=== PATIENT | female | born 1935 | race Caucasian/White ===

== ENCOUNTER → 2016-11-27 | Outpatient (CLI) | payer MEDICARE ==
[~2016-11-27] MED LIST: BENA25CA2 PO; BLACK COHASH; BLACK COHOSH OR; CALCTAB22; CALCTAB22 OR; GABA300T OR; HYDR25TA6; HYDR25TA6 OR; LISI20TA5; LISI20TA5 OR; METH10TA2; METH10TA2 OR; NEUR300C; OMEGA 3; OMEGA 3 OR; PLAV75TA2; PLAV75TA2 OR; POTA10CA2; POTA10CA2 OR; RANI150C; RANI150C OR; SOY; SOY OR; SYNT100T; SYNT100T OR; SYNT75TA PO; TRAM50TA2; TRAM50TA2 OR; ULTR50TA PO; VITA100027; VITAMIN D50000 UNT OR; ZOCO5TAB; ZOCO5TAB OR; [UNRECOGNIZED DRUG - OTHER]; hydrocodone PO
== END ==
LOC: M ONCR 13:04
PROVIDERS: ATTEND Radiology Radiation Oncology
DX: C34.11 Malignant neoplasm of upper lobe, right bronchus or lung (principal)

== ENCOUNTER → 2016-12-17 | Outpatient (REF) | payer MEDICARE ==
[2016-12-17 13:24] LABS: THYROXINE (T4) 14.5 UG/DL (4.5-12.0)
== END ==
LOC: M LAB REF 12:29
PROVIDERS: ATTEND Internal Medicine Medical Oncology
DX: C34.90 Malignant neoplasm of unspecified part of unspecified bronchus or lung (principal)

== ENCOUNTER → 2016-12-21 | Outpatient (CLI) | payer MEDICARE ==
--- NOTE | 2016-12-22 01:10 | ECWPNPC ---
PATIENT NAME: NOMI PAREDES : 1935 GENDER: FEMALE VISIT DATE: 12/21/2016 DISCHARGE DATE: 12/21/16 1135 VISIT LOCKED DATE TIME: PHYSICIAN: SAVANNAH RICHARDS RESOURCE: SAVANNAH RICHARDS REASON FOR APPOINTMENT 1. FOLLOW UP HISTORY OF PRESENT ILLNESS HISTORY OF PRESENT ILLNESS: HERE FOR F/U OF PERSISTENT THORACIC BACK PAIN. CONTINUES WITH INTERMITTENT LBP WHEN SHE OVER WORKS. RATING PAIN VAS 1-10 THORACIC PAIN TODAY.USING METHADONE 10MG BID AND TRAMADOL 50MG PRN HELPFUL AT REDUCING PAIN. DENIES SIDE EFFECTS W MEDICATION. PAIN THE PATIENT DESCRIBES THE PAIN... THE PATIENT DESCRIBES THE PAIN... THE PATIENT DESCRIBES THE PAIN... FALL RISK SCREENING: SCREENING :NO FALLS IN THE PAST YEAR CURRENT MEDICATIONS TAKING CALCIUM CARBONATE 600 MG TABLET 1 TABLET ORALLY DAILY TAKING PLAVIX 75 MG TABLET 1 TABLET ORALLY ONCE A DAY TAKING DIPHENHYDRAMINE HCL 25 MG CAPSULE 1 CAPSULE NEEDED ORALLY EVERY 6 HRS TAKING GABAPENTIN 300 MG CAPSULE 1 CAPSULE ORALLY QHS TAKING HYDROCHLOROTHIAZIDE 12.5 MG CAPSULE 1 CAPSULE ORALLY ONCE A DAY TAKING SYNTHROID 112 MCG TABLET 1 TABLET ORALLY ONCE A DAY TAKING LISINOPRIL 20 MG TABLET 1 TABLET ORALLY ONCE A DAY TAKING RANITIDINE HCL 150 MG CAPSULE 1 CAPSULE ORALLY TWICE A DAY TAKING SIMVASTATIN 5 MG TABLET 1 TABLET IN THE EVENING ORALLY ONCE A DAY TAKING BLACK COHOSH 40 MG CAPSULE ORALLY DAILY TAKING OMEGA 3 1000 MG CAPSULE 1 CAPSULE ORALLY ONCE A DAY TAKING TRAMADOL HCL 50 MG TABLET 1 TABLET NEEDED ORALLY EVERY 6 HRS TAKING METHADONE HCL 10 MG TABLET 1 TAB(S) ORALLY BID MDD2 3MOS SUPPLY CAT D CHRONIC PAIN TAKING K DUR 10 MEQ DAILY NOT-TAKING SOY BALANCE 1 1 TAB(S) P.O. DAILY DISCONTINUED POTASSIUM CHLORIDE 10 MEQ/100ML SOLUTION 1 PACKET INTRAVENOUS ONCE A DAY MEDICATION LIST REVIEWED AND RECONCILED WITH THE PATIENT PAST MEDICAL HISTORY HYPERTENSION HYPERTHYROIDISM ESOPHAGEAL REFLUX HIATAL HERNIA RIGHT LUNG CANCER-RAD TX MELANOMA 2011 ALLERGIES N.K.D.A. SOCIAL HISTORY GENERAL: TOBACCO USE ARE YOU A:NONSMOKER LEARNING BARRIERS / SPECIAL NEEDS ORIENTED TO PLAN OF CARE: PATIENT, PAIN MANAGEMENT PATIENT, ORIENTED TO PLAN OF CARE: PATIENT, PAIN MANAGEMENT PATIENT. NEW PATIENT PAIN DIARY TODAY'S VISITNOTES FROM 0-10, WHAT LEVEL IS YOUR PAIN TODAY?0 PAIN CLINIC PFS, CLERGY, PUBLIC HEALTH REFERRALS PFS REFERRAL NEEDED?NO CLERGY REFERRAL NEEDED?NO PUBLIC HEALTH REFERRAL NEEDED?NO WAS THE PROVIDER NOTIFIED OF ANY PERTINENT INFO?NO PFS REFERRAL NEEDED?NO CLERGY REFERRAL NEEDED?NO PUBLIC HEALTH REFERRAL NEEDED?NO WAS THE PROVIDER NOTIFIED OF ANY PERTINENT INFO?NO REVIEW OF SYSTEMS CONSTITUTIONAL: ANY CHANGE IN YOUR MEDICAL CONDITION? YES LUNG CANCER -5 RAD TX-COMPLETED LAST WEEK . CHILLS NO . FEVER NO . INFECTION: DO YOU HAVE NEW INFECTIONS? NO . DO YOU HAVE HISTORY OF MRSA? NO . MUSCULOSKELETAL: ANY NEW PATTERNS OF PAIN OR NUMBNESS? NO . GASTROENTEROLOGY: ANY NEW CHANGE IN BOWEL CONTROL? NO . GENITOURINARY: ANY NEW CHANGE IN BLADDER CONTROL? NO . IS THERE A CHANCE YOU COULD BE ? NO . HEMATOLOGY/LYMPH: DO YOU TAKE ANY BLOOD THINNERS? (FOR EXAMPLE- COUMADIN, PLAVIX, AGGRENOX, PLATEL, PRADAXA, OR XARELTO) YES PLAVIX . WHEN WAS YOUR LAST DOSE? DATE: TIME: . NEUROLOGY: HAVE YOU FALLEN IN THE PAST 6 MONTHS? NO . ANY NEW EXTREMITY NUMBNESS OR WEAKNESS? NO . CARDIOLOGY: DO YOU HAVE A PACEMAKER OR DEFIBRILLATOR? NO . RESPIRATORY: HAVE YOU BEEN SICK IN THE PAST WEEK? NO . FEVER NO . FLU LIKE SYMPTOMS? NO . COUGH NO . INTEGUMENTARY: DO YOU HAVE ANY RASHES OR OPEN SORES? NO . ALLERGIC/IMMUNO: ARE YOU ALLERGIC TO SHELLFISH OR IV DYE? NO . ANY NEW ALLERGIES? NO . PSYCHIATRIC: DO YOU HAVE THOUGHTS OF HURTING YOURSELF OR SOMEONE ELSE? NO . ARE YOU ABUSED, NEGLECTED, OR IN AN UNSAFE ENVIRONMENT? NO . ENDOCRINOLOGY: ARE YOU DIABETIC? NO . OTHER: DO YOU NEED ANY PRESCRIPTIONS? YES METHADONE . IF YES, PLEASE LIST: ____ . ANY NEW PROBLEMS WITH YOUR MEDICATIONS? NO . WHEN DID YOU LAST EAT? ____ . WHEN DID YOU LAST DRINK? ____ . WHAT DID YOU LAST DRINK? ____ . NAME OF PERSON DRIVING YOU HOME? ____ . DO YOU HAVE ANY OTHER QUESTIONS OR CONCERNS NO . REVIEWED BY: PROVIDER: SAVANNAH LEDESMA . VITAL SIGNS WT 109.4 LBS, HT 97.9 IN, BMI 8.02 INDEX, BP 141/64 MM HG, RR 16 /MIN, TEMP 98.5 F, OXYGEN SAT % 93%, NA INITIALS SC 10:47, REVIEWED BY: SARAH. EXAMINATION GENERAL EXAMINATION: LUNGS:LUNG SOUNDS ARE CLEAR. HEART:HEART RATE REGULAR. MUSCULOSKELETAL:*, TRIGGER POINTS:, ELICITED WITH PALPATION OVER MID THORACIC MUSCLES L>R, NORMAL RANGE OF MOTION ALL JOINTS . 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 WAS OFFERED SMOKING CESSATION FOR GUIDANCE IN QUITTING THROUGH THE [facility] QUITS PROGRAM AND THE [facility] CESSATION PROGRAM. , #128 - SCREENING BMI AND F/U PLAN IN : BMI ABOVE NORMAL TODAY. DISCUSSED WITH PATIENT NUTRITIONAL FOOD CHOICES TO ASSIST WITH WEIGHT LOSS. RECCOMMENDED REDUCING SALT, SUGAR, SODA INTAKE. RECOMMEND INCREASE ACTIVITY TO INCLUDE WALKING ON A REGULAR BASIS. PROFESSIONAL NUTRITIONAL NUTRITIONAL GUIDANCE WAS OFFERED AND WAS DECLINED. , ISTOP REGISTRY REVIEWED AND DEMNOSTRATES COMPLLIANCE. BRINGS IN MEDICATIONS WHICH IS APPROPRIATE FOR WHAT WAS DISPENSED. RECENT URINE TOXICOLOGY REVIEWED. NO UNAUTHORIZED MEDICATIONS. NO ILLICIT SUBSTANCES AND PRESCRIBED MEDICATIONS WERE PRESENT. , RISKS AND BENEFITS OF NARCOTIC/OPIOD MEDICATIONS WERE REVIEWED WITH PATIENT - THIS INCLUDES BUT IS NOT LIMITED TO RISK OF DEPENDANCE/DEVELOPMENT OF ADDICTION, MOOD DISTURBANCE AND DEPRESSION, OSTEOPOROSIS, HORMONAL AND LABIDAL CHANGES, RESPIRATORY DEPRESSION AND . PATIENT IS ADVISED NOT TO DRIVE WHILE ON THESE MEDICATIONS.URINE TOX TODAY. PROCEDURE CODES FA211 ESTABILISHED PATIENT [facility] CHARGE G7432 BMI CALC BUT PT NOT ELIG F/U PLAN G8783 BP SCR PRFRM RCMDD DEFIND SCR INTVL G8730 PAIN ASSESS POS TOOL F/U PLAN DOC 3016F PT SCRND UNHLTHY OH USE 1123F ACP DISCUSS/DSCN MKR DOCD 9918F FALL PLAN OF CARE DOCD G8427 DOC MEDS VERIFIED W/PT OR RE 2948F FALL RISK ASSESSMENT DOCD 4254F PT TOBACCO SCREEN RCVD TLK FOLLOW UP 3 MONTHS ELECTRONICALLY SIGNED BY CALLIE THACKER ON 12/21/2016 AT 01:10 PM EST DISCLAIMER : THIS IS A VISIT SUMMARY EXTRACTED FROM THE [employer] CHART. IT IS NOT A COPY OF THE [employer] PROGRESS NOTE. KASSANDRA
== END ==
LOC: M PAIN 10:40
PROVIDERS: ATTEND Nurse Practitioner Family
DX: Z09 Encounter for follow-up examination after completed treatment for conditions other than malignant neoplasm (principal); G89.29 Other chronic pain; M54.6 Pain in thoracic spine; M79.1 Myalgia; I10 Essential (primary) hypertension; E03.9 Hypothyroidism, unspecified; K21.9 Gastro-esophageal reflux disease without esophagitis; K44.9 Diaphragmatic hernia without obstruction or gangrene; Z79.01 Long term (current) use of anticoagulants; Z79.891 Long term (current) use of opiate analgesic; Z79.899 Other long term (current) drug therapy; Z85.118 Personal history of other malignant neoplasm of bronchus and lung; Z92.3 Personal history of irradiation

== ENCOUNTER → 2017-03-18 | Outpatient (REF) | payer MEDICARE ==
[2017-03-18 14:10] LABS: THYROXINE (T4) 14.3 UG/DL (4.5-12.0)
== END ==
LOC: M LAB REF 12:27
PROVIDERS: ATTEND Internal Medicine Medical Oncology
DX: C43.9 Malignant melanoma of skin, unspecified (principal)

== ENCOUNTER → 2017-03-20 | Outpatient (CLI) | payer MEDICARE ==
--- NOTE | 2017-03-30 00:30 | ECWPNPC ---
PATIENT NAME: NOMI PAREDES : 1935 GENDER: FEMALE VISIT DATE: 03/20/2017 DISCHARGE DATE: 03/20/17 1207 VISIT LOCKED DATE TIME: PHYSICIAN: SAVANNAH RICHARDS RESOURCE: SAVANNAH RICHARDS REASON FOR APPOINTMENT 1. BACK HISTORY OF PRESENT ILLNESS HISTORY OF PRESENT ILLNESS: HERE FOR F/U OF PERSISTENT THORACIC BACK PAIN. CONTINUES WITH INTERMITTENT LBP WHEN SHE OVER WORKS. RATING PAIN VAS 1-10 THORACIC PAIN TODAY.USING METHADONE 10MG BID AND TRAMADOL 50MG PRN HELPFUL AT REDUCING PAIN. DENIES SIDE EFFECTS W MEDICATION. PAIN THE PATIENT DESCRIBES THE PAIN... THE PATIENT DESCRIBES THE PAIN... THE PATIENT DESCRIBES THE PAIN... THE PATIENT DESCRIBES THE PAIN... PAIN THE PATIENT DESCRIBES THE PAIN... THE PATIENT DESCRIBES THE PAIN... THE PATIENT DESCRIBES THE PAIN... THE PATIENT DESCRIBES THE PAIN... FALL RISK SCREENING: SCREENING :NO FALLS IN THE PAST YEAR CURRENT MEDICATIONS TAKING CALCIUM CARBONATE 600 MG TABLET 1 TABLET ORALLY DAILY TAKING PLAVIX 75 MG TABLET 1 TABLET ORALLY ONCE A DAY TAKING DIPHENHYDRAMINE HCL 25 MG CAPSULE 1 CAPSULE NEEDED ORALLY EVERY 6 HRS TAKING GABAPENTIN 300 MG CAPSULE 1 CAPSULE ORALLY QHS TAKING HYDROCHLOROTHIAZIDE 12.5 MG CAPSULE 1 CAPSULE ORALLY ONCE A DAY TAKING SYNTHROID 125 MCG TABLET 1 TABLET ORALLY ONCE A DAY TAKING LISINOPRIL 20 MG TABLET 1 TABLET ORALLY ONCE A DAY TAKING RANITIDINE HCL 150 MG CAPSULE 1 CAPSULE ORALLY TWICE A DAY TAKING SIMVASTATIN 5 MG TABLET 1 TABLET IN THE EVENING ORALLY ONCE A DAY TAKING BLACK COHOSH 40 MG CAPSULE ORALLY DAILY TAKING OMEGA 3 1000 MG CAPSULE 1 CAPSULE ORALLY ONCE A DAY TAKING K DUR 10 MEQ DAILY TAKING METHADONE HCL 10 MG TABLET 1 TAB(S) ORALLY BID MDD2 3MOS SUPPLY CAT D CHRONIC PAIN NOT-TAKING TRAMADOL HCL 50 MG TABLET 1 TABLET NEEDED ORALLY EVERY 6 HRS NOT-TAKING SOY BALANCE 1 1 TAB(S) P.O. DAILY MEDICATION LIST REVIEWED AND RECONCILED WITH THE PATIENT PAST MEDICAL HISTORY HYPERTENSION HYPERTHYROIDISM ESOPHAGEAL REFLUX HIATAL HERNIA RIGHT LUNG CANCER-RAD TX MELANOMA 2010 ALLERGIES N.K.D.A. SURGICAL HISTORY RADIATION FOR LUNG CA 5 TREATMENTS TOTAL 11/2016 SOCIAL HISTORY GENERAL: TOBACCO USE ARE YOU A:CURRENT SMOKER PATIENT COUNSELED ON THE DANGERS OF TOBACCO USE AND URGED TO QUIT:03/20/2017 ARE YOU INTERESTED IN QUITTING?READY TO QUIT COUNSELED THE PATIENT ON TOBACCO USE, CESSATION [id number]/03/2017 CAFFEINE CAFFEINE USE?YES HOW OFTEN AND HOW MUCH? 4 CUPS PER DAY LEARNING BARRIERS / SPECIAL NEEDS VISION IMPAIRED?YES :CORRECTIVE LENSES READINESS TO LEARN?YES LEARNING PREFERENCES?NO SPECIAL DEVICES?YES :WALKER NEW PATIENT PAIN DIARY TODAY'S VISITNOTES FROM 0-10, WHAT LEVEL IS YOUR PAIN TODAY?0 PAIN CLINIC PFS, CLERGY, PUBLIC HEALTH REFERRALS PFS REFERRAL NEEDED?NO CLERGY REFERRAL NEEDED?NO PUBLIC HEALTH REFERRAL NEEDED?NO WAS THE PROVIDER NOTIFIED OF ANY PERTINENT INFO?YES REVIEWED BY: DS. ADVANCED DIRECTIVES HEALTH CARE PROXY?YES NAME OF HCP DAUGHTER - DYAN PAREDES CONTACT # FOR HCP [phone] REVIEW OF SYSTEMS CONSTITUTIONAL: ANY CHANGE IN YOUR MEDICAL CONDITION? NO . CHILLS NO . FEVER NO . INFECTION: DO YOU HAVE NEW INFECTIONS? NO . DO YOU HAVE HISTORY OF MRSA? NO . MUSCULOSKELETAL: ANY NEW PATTERNS OF PAIN OR NUMBNESS? NO . GASTROENTEROLOGY: ANY NEW CHANGE IN BOWEL CONTROL? NO . GENITOURINARY: ANY NEW CHANGE IN BLADDER CONTROL? NO . IS THERE A CHANCE YOU COULD BE ? NO . HEMATOLOGY/LYMPH: DO YOU TAKE ANY BLOOD THINNERS? (FOR EXAMPLE- COUMADIN, PLAVIX, AGGRENOX, PLATEL, PRADAXA, OR XARELTO) YES, PLAVIX . NEUROLOGY: HAVE YOU FALLEN IN THE PAST 6 MONTHS? NO . ANY NEW EXTREMITY NUMBNESS OR WEAKNESS? NO . CARDIOLOGY: DO YOU HAVE A PACEMAKER OR DEFIBRILLATOR? NO . RESPIRATORY: HAVE YOU BEEN SICK IN THE PAST WEEK? NO . FEVER NO . FLU LIKE SYMPTOMS? NO . COUGH NO . INTEGUMENTARY: DO YOU HAVE ANY RASHES OR OPEN SORES? NO . ALLERGIC/IMMUNO: ARE YOU ALLERGIC TO SHELLFISH OR IV DYE? NO . ANY NEW ALLERGIES? NO . PSYCHIATRIC: DO YOU HAVE THOUGHTS OF HURTING YOURSELF OR SOMEONE ELSE? NO . ARE YOU ABUSED, NEGLECTED, OR IN AN UNSAFE ENVIRONMENT? NO . ENDOCRINOLOGY: ARE YOU DIABETIC? NO . OTHER: DO YOU NEED ANY PRESCRIPTIONS? NO . IF YES, PLEASE LIST: ____ . ANY NEW PROBLEMS WITH YOUR MEDICATIONS? NO . WHEN DID YOU LAST EAT? ____ . WHEN DID YOU LAST DRINK? ____ . WHAT DID YOU LAST DRINK? ____ . NAME OF PERSON DRIVING YOU HOME? ____ . DO YOU HAVE ANY OTHER QUESTIONS OR CONCERNS NO, PT REFUSING ANY SMOKING CESSATION COUSELING AT THIS TIME, PT STATES THAT SHE NOW HAS "[employer]" FOR MEDICAL NECCESITY AT HOME. . REVIEWED BY: PROVIDER: SAVANNAH LEDESMA . VITAL SIGNS WT 111.4 LBS, HT 97.9 IN, BMI 8.17 INDEX, BP 135/54 MM HG, HR 89 /MIN, RR 16 /MIN, TEMP 99.1 F, OXYGEN SAT % 94%, SAFE IN ENV? (Y/N) Y, NA INITIALS AW 1123, REVIEWED BY: DS. EXAMINATION GENERAL EXAMINATION: LUNGS:LUNG SOUNDS ARE CLEAR. HEART:HEART RATE REGULAR. MUSCULOSKELETAL:*, TRIGGER POINTS:, ELICITED WITH PALPATION OVER MID THORACIC MUSCLES L>R, NORMAL RANGE OF MOTION ALL JOINTS . 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 PROCEDURE CODES FA211 ESTABILISHED PATIENT [facility] CHARGE G8730 PAIN ASSESS POS TOOL F/U PLAN DOC G8427 DOC MEDS VERIFIED W/PT OR RE DISPOSITION & COMMUNICATION FOLLOW UP 3 MONTHS ELECTRONICALLY SIGNED BY CALLIE THACKER ON 03/29/2017 AT 05:51 PM EDT DISCLAIMER : THIS IS A VISIT SUMMARY EXTRACTED FROM THE [employer] CHART. IT IS NOT A COPY OF THE [employer] PROGRESS NOTE. KASSANDRA
== END ==
LOC: M PAIN 11:00
PROVIDERS: ATTEND Nurse Practitioner Family
DX: G89.29 Other chronic pain (principal); M54.6 Pain in thoracic spine; M79.1 Myalgia; I10 Essential (primary) hypertension; E03.9 Hypothyroidism, unspecified; K21.9 Gastro-esophageal reflux disease without esophagitis; F17.200 Nicotine dependence, unspecified, uncomplicated; Z79.01 Long term (current) use of anticoagulants; F11.20 Opioid dependence, uncomplicated; Z79.899 Other long term (current) drug therapy

== ENCOUNTER 2017-05-27 10:11 | Emergency (ER) | payer MEDICARE ==
[~2017-05-27] VITALS: Ht 154.9 cm; Wt 50.0 kg
[2017-05-27 10:57] LABS: BASO % 0.2 % (0.0-1.0); EOS # 0.1 K/mm3 (0.0-0.50); EOS % 0.8 % (0.0-3.0); LARGE UNSTAINED CELL # 0.1 K/mm3 (0.0-0.4); LARGE UNSTAINED CELL % 1.3 % (0.0-4.0); LYMPH # 1.4 K/mm3 (1.5-4.5); LYMPH % 15.6 % (24.0-44.0); MEAN CORPUSCULAR HEMOGLOBIN 31.2 pg (27.0-33.0); MEAN CORPUSCULAR HGB CONC 33.3 g/dl (32.0-36.5); MEAN CORPUSCULAR VOLUME 93.6 fl (80.0-96.0); MONO # 0.4 K/mm3 (0.0-0.8); MONO % 5.1 % (0.0-5.0); NEUTROPHILS # 6.1 K/mm3 (1.8-7.7); NEUTROPHILS % 76.9 % (36.0-66.0); PLATELET COUNT, AUTOMATED 256 k/mm3 (150-450); RED CELL DISTRIBUTION WIDTH 13.1 % (11.5-14.5)
[2017-05-27 11:13] LABS: ANION GAP 7 MEQ/L (8-16); BLOOD UREA NITROGEN 15 MG/DL (7-18); CALCIUM LEVEL 9.3 MG/DL (8.8-10.2); CARBON DIOXIDE LEVEL 28 MEQ/L (21-32); CHLORIDE LEVEL 104 MEQ/L (98-107); CREATININE FOR GFR 0.88 MG/DL (0.55-1.02); GLOMERULAR FILTRATION RATE > 60.0 (>32); GLUCOSE, FASTING 138 MG/DL (83-110); POTASSIUM SERUM 3.9 MEQ/L (3.5-5.1); SODIUM LEVEL 139 MEQ/L (136-145)
--- NOTE | 2017-05-27 11:54 | REP ---
RIGHT ANKLE: Four views. There is no evidence of an acute fracture, dislocation or intrinsic bone disease. The ankle mortise is anatomic. IMPRESSION: No fracture or dislocation. Signed by Fredis Mendez MD 05/27/2017 05:08 P
[2017-05-27 11:58] VITALS: BP 116/51
== END 2017-05-27 11:57 | disposition home or self-care (01) ==
LOC: M ED 10:11
DX: S90.01XA Contusion of right ankle, initial encounter (principal); M65.279 Calcific tendinitis, unspecified ankle and foot; X58.XXXA Exposure to other specified factors, initial encounter; Y92.9 Unspecified place or not applicable; Y93.9 Activity, unspecified; Y99.9 Unspecified external cause status; F17.200 Nicotine dependence, unspecified, uncomplicated; Z79.899 Other long term (current) drug therapy

== ENCOUNTER → 2017-09-18 | Outpatient (CLI) | payer MEDICARE ==
--- NOTE | 2017-09-19 11:13 | REP ---
Whole body PET CT scan for follow up of melanoma: Comparison is a whole body PET CT scan 09/19/2016. Whole body scan is performed from the calvarium to the feet. Neck and supraclavicular areas: There are no hypermetabolic foci. This is unchanged. Chest: The known nodule medially in the right upper lobe, para vertebral has decreased in size, today measuring 0.5 cm diameter (previously 1.2 cm). The maximal standard uptake value today is 2.3, borderline hypermetabolic (previously 4.9). However, the there is a new hypermetabolic focus in the a normal size paratracheal node measuring 0.6 cm diameter with a maximal standard uptake value of 4.8. There are no other foci in the chest. Abdomen, pelvis and upper thighs: There are no foci, as previously. Lower extremities: There is a hypermetabolic focus anteriorly in the left medial femoral condyle as previously. The maximal standard uptake value today is 4.5, previously 4.1. Previously there was a nonhypermetabolic focus at the distal insertion of the right quadriceps tendon. The uptake in this location today has decreased and is again non hypermetabolic with a maximal standard uptake value of 2.0, previously 2.4. Reviewing the images on subtracted non subtracted views there are no other hypermetabolic foci, as previously. Impression: The previous lung nodule medially in the right upper lobe has decreased size and uptake. There is new uptake in a paratracheal mediastinal normal size node. The uptake anteriorly in the left femoral condyle is unchanged. The uptake in the right quadriceps tendon at its insertion has decreased. The studies performed with 10 mCi of F 18 FDG. Signed by Fredis Pierce MD 09/19/2017 11:05 A
== END ==
LOC: M PLARAD 09:14
PROVIDERS: ATTEND Internal Medicine Medical Oncology
DX: C49.22 Malignant neoplasm of connective and soft tissue of left lower limb, including hip (principal); R91.1 Solitary pulmonary nodule
CPT/HCPCS: 78816; A9552

== ENCOUNTER → 2017-09-26 | Outpatient (REF) | payer MEDICARE | LOC: M LAB REF 09:47 | PROVIDERS: ATTEND Internal Medicine Medical Oncology | DX: C34.91 Malignant neoplasm of unspecified part of right bronchus or lung (principal) ==

== ENCOUNTER 2018-01-06 10:40 | Emergency (ER) | payer MEDICARE ==
[2018-01-06] MEDS: ACETAMINOPHEN 325 MG TAB PO (11:06)
== END 2018-01-06 11:39 | disposition home or self-care (01) ==
LOC: M ED 10:40
DX: S39.012A Strain of muscle, fascia and tendon of lower back, initial encounter (principal); X50.0XXA Overexertion from strenuous movement or load, initial encounter; Y92.099 Unspecified place in other non-institutional residence as the place of occurrence of the external cause; Y93.89 Activity, other specified; M25.78 Osteophyte, vertebrae; M41.27 Other idiopathic scoliosis, lumbosacral region; Z87.81 Personal history of (healed) traumatic fracture; Z79.01 Long term (current) use of anticoagulants; Z79.899 Other long term (current) drug therapy
CPT/HCPCS: 72110

== ENCOUNTER → 2018-03-11 | Outpatient (CLI) | payer MEDICARE | LOC: M RAD 16:16 | DX: C34.90 Malignant neoplasm of unspecified part of unspecified bronchus or lung (principal); R51 Headache | CPT/HCPCS: 71260 ==

== ENCOUNTER → 2018-03-13 | Outpatient (CLI) | payer MEDICARE ==
[~2018-03-13] MED LIST changes: -BENA25CA2 PO; -BLACK COHASH; -BLACK COHOSH OR; -CALCTAB22; -CALCTAB22 OR; -GABA300T OR; -HYDR25TA6; -HYDR25TA6 OR; +ISOVUE-370 76% 100ML VIAL (Q9967) As Ordered; -LISI20TA5; -LISI20TA5 OR; -METH10TA2; -METH10TA2 OR; -NEUR300C; -OMEGA 3; -OMEGA 3 OR; -PLAV75TA2; -PLAV75TA2 OR; -POTA10CA2; -POTA10CA2 OR; +PROHANCE 279.3MG/ML 15ML VIAL (A9576) As Ordered; -RANI150C; -RANI150C OR; -SOY; -SOY OR; -SYNT100T; -SYNT100T OR; -SYNT75TA PO; -TRAM50TA2; -TRAM50TA2 OR; -ULTR50TA PO; -VITA100027; -VITAMIN D50000 UNT OR; -ZOCO5TAB; -ZOCO5TAB OR; -[UNRECOGNIZED DRUG - OTHER]; -hydrocodone PO
== END ==
LOC: M RAD 13:00
DX: C34.90 Malignant neoplasm of unspecified part of unspecified bronchus or lung (principal); R51 Headache; R26.89 Other abnormalities of gait and mobility
CPT/HCPCS: A9576

== ENCOUNTER → 2018-03-14 | Outpatient (CLI) | payer MEDICARE | LOC: M CARPUL 11:00 | DX: C34.90 Malignant neoplasm of unspecified part of unspecified bronchus or lung (principal); R07.89 Other chest pain | CPT/HCPCS: 93306 ==

== ENCOUNTER → 2018-03-27 | Outpatient (CLI) | payer MEDICARE | LOC: M ONCR 09:49 | DX: C34.11 Malignant neoplasm of upper lobe, right bronchus or lung (principal) | CPT/HCPCS: G0463 ==

== ENCOUNTER → 2018-04-01 | Outpatient (CLI) | payer MEDICARE | LOC: M RAD 09:30 | DX: C34.90 Malignant neoplasm of unspecified part of unspecified bronchus or lung (principal); M54.9 Dorsalgia, unspecified; R07.9 Chest pain, unspecified | CPT/HCPCS: 78306 ==

== ENCOUNTER → 2018-04-11 | Outpatient (CLI) | payer MEDICARE ==
[~2018-04-11] MED LIST changes: -ISOVUE-370 76% 100ML VIAL (Q9967) As Ordered; -PROHANCE 279.3MG/ML 15ML VIAL (A9576) As Ordered; +PROHANCE 279.3MG/ML 5ML VIAL (A9576) As Ordered
== END ==
LOC: M RAD 12:12
DX: C34.11 Malignant neoplasm of upper lobe, right bronchus or lung (principal)
CPT/HCPCS: A9576

== ENCOUNTER → 2018-04-17 | Outpatient (RCR) | payer MEDICARE ==
[2018-04-17 15:08] LABS: HEMATOCRIT 40.7 % (36.0-47.0); HEMOGLOBIN 13.4 g/dl (12.0-15.5); MEAN CORPUSCULAR HEMOGLOBIN 30.7 pg (27.0-33.0); MEAN CORPUSCULAR HGB CONC 32.9 g/dl (32.0-36.5); MEAN CORPUSCULAR VOLUME 93.3 fl (80.0-96.0); PLATELET COUNT, AUTOMATED 303 10^3/uL (150-450); RED BLOOD COUNT 4.36 10^6/uL (4.00-5.40); RED CELL DISTRIBUTION WIDTH 12.9 % (11.5-14.5); WHITE BLOOD COUNT 8.5 10^3/uL (4.0-10.0)
== END ==
LOC: M ONCR 13:43
DX: C34.11 Malignant neoplasm of upper lobe, right bronchus or lung (principal)
CPT/HCPCS: 77290

== ENCOUNTER → 2018-05-09 | Outpatient (CLI) | payer MEDICARE | LOC: M ONCR 13:01 | DX: C34.11 Malignant neoplasm of upper lobe, right bronchus or lung (principal) ==

== ENCOUNTER → 2019-01-21 | Outpatient (CLI) | payer MEDICARE ==
[~2019-01-21] MED LIST changes: +BENA25CA2 PO; +BLACK COHASH; +BLACK COHOSH OR; +CALC600T3 PO; +CALCTAB22; +CALCTAB22 OR; +FLUC10TA PO; +GABA300T OR; +HYDR12CA PO; +HYDR25TA6; +HYDR25TA6 OR; +HYDR25TAB PO; +KLOR10TA76 PO; +LISI-538 PO; +LISI20TA5; +LISI20TA5 OR; +METH10TA2; +METH10TA2 OR; +METH10TA2 PO; +NEUR300C; +NEUR300C PO; +OMEGA 3; +OMEGA 3 OR; +OMEP20CA3; +PLAV1TAB2 PO; +PLAV75TA2; +PLAV75TA2 OR; +POTA10CA2; +POTA10CA2 OR; -PROHANCE 279.3MG/ML 5ML VIAL (A9576) As Ordered; +RANI150C; +RANI150C OR; +RANI1SYP PO; +ROBA500T PO; +SIMV5TAB12 PO; +SOY; +SOY OR; +SYNT100T; +SYNT100T OR; +SYNT75TA PO; +TRAM50TA2; +TRAM50TA2 OR; +TRAM50TA2 PO; +ULTR50TA PO; +VITA100027; +VITAMIN D50000 UNT OR; +ZOCO5TAB; +ZOCO5TAB OR; +[UNRECOGNIZED DRUG - OTHER]; +hydrocodone PO
--- NOTE | 2019-01-21 11:44 | REP ---
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 Synchronous a right upper lobe lung adenocarcinoma diagnosed in September 2016 status post stereotactic radiotherapy. COMPARISONS: The patient's most recent comparison PET/CT is from September 18, 2017. Comparison is made with images of the chest obtained as part of CT localization for radiation therapy April 17, 2018. MRI thoracic spine from April 11, 2018 showed metastatic foci in the T3 and T4. TECHNIQUE: 60 minutes following the intravenous injection of a 8.97 mCi dose of F-18 FDG, three-dimensional PET scintigraphy is acquired from the skull base to the proximal thighs. Triplanar noncontrast CT scanning is acquired through the same anatomic range for attenuation correction, and image registration with scan parameters optimized to minimize radiation exposure to the patient. PET scintigraphy and CT datasets were fused and displayed on a workstation with multiplanar and projection display capability. PET/CT FINDINGS: Unfortunately, there are numerous hypermetabolic pulmonary nodules bilaterally consistent with pulmonary metastases. The largest hypermetabolic mass in the chest is adjacent to or arising from the right mediastinum. This measures 7.0 cm anterior to posterior x 4.3 cm medial to lateral. It is quite hypermetabolic with maximum standard uptake value of 15.0. Multiple hypermetabolic pulmonary nodules ranging up to a maximum SUV value of 13.61. There is hypermetabolic subcarinal and pretracheal mediastinal adenopathy maximum standard uptake value up to 4.88. There is a small hypermetabolic subclavicular lymph node on the left. No other abnormal head and neck soft tissue uptake is appreciated. There are two hypermetabolic liver nodules consistent with hepatic metastases. The largest of these is inferior in the right lobe with maximum standard uptake value of 6.59. There are skeletal hypermetabolic foci as well including a hypermetabolic focus in the right superior iliac crest showing maximum standard uptake value of 11.16. There is a lesion centrally in the L3 vertebral body. No abnormal uptake is seen in the T3 or T4 level. There is a soft tissue nodule which is hypermetabolic in the right dorsal paraspinal soft tissues at the thoracolumbar junction. There is no visible mass on accompanying CT here. IMPRESSION: Extensive pulmonary and mediastinal metastatic disease. There are two visible skeletal metastases. There is a possible soft tissue focus in the paraspinal musculature at the thoracolumbar junction. There is a hyperemic metabolic normal-sized left subclavicular lymph node. There are two hypermetabolic liver foci as well. Electronically Signed by Malcolm Abarca MD 01/21/2019 12:25 P
== END ==
LOC: M PLARAD 07:21
PROVIDERS: ATTEND Internal Medicine Hematology & Oncology
DX: C34.11 Malignant neoplasm of upper lobe, right bronchus or lung (principal); C78.01 Secondary malignant neoplasm of right lung; C78.1 Secondary malignant neoplasm of mediastinum; C78.02 Secondary malignant neoplasm of left lung
CPT/HCPCS: 78815; A9552

== ENCOUNTER → 2019-02-13 | Outpatient (CLI) | payer MEDICARE ==
[~2019-02-13] MED LIST changes: +LIDOCAINE 1% MDV 20ML VIAL As Ordered ONE
== END ==
LOC: M RADPRO 07:22
PROVIDERS: ATTEND Internal Medicine Hematology & Oncology
DX: C34.90 Malignant neoplasm of unspecified part of unspecified bronchus or lung (principal)